=== PATIENT | male | born 1985 | race American Indian/Alaskan Native ===

== ENCOUNTER 2020-05-12 16:32 | Emergency (ER) | payer SELFPAY ==
[2020-05-12 17:08] VITALS: BP 149/101
--- NOTE | 2020-05-12 17:09 | Emergency Department Report ---
ED Lower Extremity HPI - General Chief Complaint: Extremity Injury, Lower Stated Complaint: RT KNEE OUT OF PLACE Time Seen by Provider: 05/12/20 16:52 Source: patient Mode of arrival: Wheelchair Limitations: No Limitations - History of Present Illness Initial Comments: Patient is a 34-year-old male presents emergency room with complaints of right knee pain that began last week. He states that his knee pain worsened over the last couple days. He states that earlier in the week he was working and was on his feet all day which he believes exacerbated his knee pain. He states he has pain with extending the knee. He denies any fall or injury. He denies ever injuring this knee in the past. He denies any numbness or weakness. He is able to ambulate. No past medical history. He has an allergy to Lortab and Tylenol. - Related Data Previous Rx's Medication Instructions Recorded Last Taken Type Loratadine (Nf) [Claritin] 10 mg PO DAILY #30 tablet 09/21/13 Unknown Rx Sulfamethoxazole/Trimethoprim 1 each PO BID #20 tablet 09/21/13 Unknown Rx [Bactrim Ds] predniSONE [Deltasone] 50 mg PO QDAY #5 tab 09/21/13 Unknown Rx Naproxen [EC-Naproxen] 500 mg PO BID PRN #20 tablet. 05/12/20 Unknown Rx Allergies Allergy/AdvReac Type Severity Reaction Status Date / Time acetaminophen Allergy Rash Verified 05/12/20 16:51 ED Review of Systems ROS: Stated complaint: RT KNEE OUT OF PLACE Other details as noted in HPI Comment: All other systems reviewed and negative ED Past Medical Hx - Past Medical History Previous Medical History?: Yes Hx Hypertension: Yes - Social History Smoking Status: Never Smoker Substance Use Type: None - Medications Home Medications: Home Medications Medication Instructions Recorded Confirmed Last Taken Type Loratadine (Nf) [Claritin] 10 mg PO DAILY #30 tablet 09/21/13 Unknown Rx Sulfamethoxazole/Trimethoprim 1 each PO BID #20 tablet 09/21/13 Unknown Rx [Bactrim Ds] predniSONE [Deltasone] 50 mg PO QDAY #5 tab 09/21/13 Unknown Rx Naproxen [EC-Naproxen] 500 mg PO BID PRN #20 tablet. 05/12/20 Unknown Rx ED Physical Exam - General Limitations: No Limitations General appearance: alert, in no apparent distress - Head Head exam: Present: atraumatic, normocephalic - Eye Eye exam: Present: normal appearance - ENT ENT exam: Present: mucous membranes moist - Respiratory Respiratory exam: Absent: respiratory distress, accessory muscle use - Extremities Exam Extremities exam: Present: other (mild ttp to the right lateral knee, FROM of the RLE with mild discomfort upon flexion, no edema, no skin changes, no deformity, no obvious joint laxity, no calf ttp, no posterior knee ttp, neurovascularly intact) - Neurological Exam Neurological exam: Present: alert, oriented X3 - Psychiatric Psychiatric exam: Present: normal affect, normal mood - Skin Skin exam: Present: warm, dry, intact ED Course Vital Signs 05/12/20 16:52 Temperature 98.3 F Pulse Rate 57 L Respiratory 18 Rate Blood Pressure 149/101 O2 Sat by Pulse 100 Oximetry ED Lower Extremity MDM - Radiology Data Radiology results: report reviewed Ordering Physician: LENCHO WALLACE Date of Service: 05/12/20 Procedure(s): XR knee 3V RT Accession Number(s): [id number] cc: LENCHO WALLACE Fluoro Time In Minutes: HISTORY:right knee pain COMPARISON: None. TECHNIQUE: AP lateral and obliques views were obtained FINDINGS: Bones: No fracture or dislocation. Joint spaces: Maintained. Soft tissues: No significant abnormality. Additional findings: None. IMPRESSION: 1. No significant abnormality. Signer Name: Jose Delaney MD Signed: 05/12/2020 5:20 PM Workstation Name: [id number] Transcribed By: WG Dictated By: Jose Delaney MD Electronically Authenticated By: Jose Delaney MD Signed Date/Time: 05/12/201719 DD/ 19 TD/TT: Print - Medical Decision Making Patient is a 34-year-old male presents emergency room with complaints of right knee pain that began last week. He states that his knee pain worsened over the last couple days. He states that earlier in the week he was working and was on his feet all day which he believes exacerbated his knee pain. He states he has pain with extending the knee. He denies any fall or injury. He denies ever injuring this knee in the past. He denies any numbness or weakness. He is able to ambulate. No past medical history. He has an allergy to Lortab and Tylenol. VSS. on exam: mild ttp to the right lateral knee, FROM of the RLE with mild discomfort upon flexion, no edema, no skin changes, no deformity, no obvious joint laxity, no calf ttp, no posterior knee ttp, neurovascularly intact. XR right knee: 1. No significant abnormality. Discussed all results with patient. Patient given prescription for naproxen. Patient placed in Binh wrap by tech and remained neurovascular intact. Advised patient Please take medication as prescribed as needed. Do not wear Binh bandage too tightly and do not wear at night while sleeping. May use ice for 15 minutes at a time, rest, elevation of the leg. Follow-up with orthopedic doctor. Return to emergency room for new or worsening symptoms. - Differential Diagnosis Strain, sprain, fracture, dislocation, contusion, tendinitis Critical care attestation.: If time is entered above; I have spent that time in minutes in the direct care of this critically ill patient, excluding procedure time. ED Disposition Clinical Impression: Right knee pain Qualifiers: Chronicity: acute Qualified Code(s): M25.561 - Pain in right knee Disposition: DC-01 TO HOME OR SELFCARE Is pt being admited?: No Does the pt Need Aspirin: No Condition: Stable Instructions: Tendinitis Additional Instructions: Please take medication as prescribed as needed. Do not wear Binh bandage too tightly and do not wear at night while sleeping. May use ice for 15 minutes at a time, rest, elevation of the leg. Follow-up with orthopedic doctor. Return to emergency room for new or worsening symptoms. Prescriptions: Naproxen [EC-Naproxen] 500 mg PO BID PRN #20 tablet.dr [place] Reason: pain Referrals: [facility] [Provider Group] - 2-3 Days LUIS SEGURA MD [Staff Physician] - 2-3 Days Forms: Work/School Release Form(ED) Time of Disposition: 17:29 Print Language: INDONESIAN
--- NOTE | 2020-05-12 17:24 | XRay Report ---
HISTORY:right knee pain COMPARISON: None. TECHNIQUE: AP lateral and obliques views were obtained FINDINGS: Bones: No fracture or dislocation. Joint spaces: Maintained. Soft tissues: No significant abnormality. Additional findings: None. IMPRESSION: 1. No significant abnormality. Signer Name: Jose Delaney MD Signed: 05/12/2020 5:20 PM Workstation Name: [id number]
== END 2020-05-12 17:51 | disposition home or self-care (01) ==
LOC: ED 16:32
DX: M25.561 Pain in right knee (principal); I10 Essential (primary) hypertension; Z88.8 Allergy status to other drugs, medicaments and biological substances; Z79.899 Other long term (current) drug therapy